=== PATIENT | male | born 1935 | race Caucasian/White ===

== ENCOUNTER 2016-09-02 00:13 | Observation (INO) | payer OTHER ==
[~2016-09-02] VITALS: Ht 182.9 cm; Wt 79.4 kg
--- NOTE | 2016-09-02 00:27 | NUR ---
PT BIBA FROM HOME C/O 01/05 SUBSTERNAL NONRADIATING CHEST PAIN THAT WOKE HIM FROM HIS SLEEP. EMS ADMINISTERED 1NITRO SPRAY AND PUT HIM ON 2L OF O2 NC AND PT REPORTS PAIN NOW A 11/05. PT ARRIVES NOT SOB, DENIES PAIN ANYWHERE ELSE. PMHX:MULTIPLE STENTS AND AN [place]. PT STATES "THIS FEELS DIFFERENT THOUGH"
--- NOTE | 2016-09-02 00:38 | ED CARDIAC/CP/PALPITATIONS ---
History of Present Illness General Chief Complaint: Chest Pain Stated Complaint: CP Source: patient, family, old records, EMS Exam Limitations: no limitations Vital Signs & Intake/Output Vital Signs & Intake/Output Vital Signs Date Time Temp Pulse Resp B/P Pulse O2 O2 Flow FiO2 Ox Delivery Rate 09/02 0141 97.6 81 18 132/63 97 Nasal 2.0L Cannula 09/02 0036 Room Air 09/02 0024 97.8 83 18 140/63 96 Nasal 2.0L Cannula Allergies Coded Allergies: NO KNOWN ALLERGIES (02/01/11) Reconcile Medications Aspirin (Aspirin*) 81 MG TAB.CHEW 1 TAB PO DAILY HEART (Reported) Atorvastatin Calcium 40 MG TABLET 1 TAB PO DAILY CHOLESTEROL (Reported) Clopidogrel Bisulfate (Clopidogrel) 75 MG TABLET 1 TAB PO DAILY ANTIPLATELET (Reported) Ezetimibe (Zetia) 10 MG TABLET 1 TAB PO DAILY CHOLESTEROL (Reported) Fish Oil/Borage/Flax/Om3,6,9#1 ([place] 3-6-9 1,200 MG Softgel) 1,200 MG CAPSULE 1 CAP PO DAILY SUPPLEMENT (Reported) Folic Acid 1 MG TABLET 400 MCG PO BID SUPPLEMENT (Reported) Labetalol HCl 100 MG TABLET 1 TAB PO BID BLOOD PRESSURE (Reported) Pantoprazole Sodium 40 MG TABLET.DR 1 TAB PO DAILY PPI (Reported) Ramipril 10 MG CAPSULE 1 CAP PO DAILY [place] (Reported) Core Measure Meds Pre-Hospital aspirin Triage Note: PT BIBA FROM HOME C/O 01/05 SUBSTERNAL NONRADIATING CHEST PAIN THAT WOKE HIM FROM HIS SLEEP. EMS ADMINISTERED 1NITRO SPRAY AND PUT HIM ON 2L OF O2 NC AND PT REPORTS PAIN NOW A 11/05. PT ARRIVES NOT SOB, DENIES PAIN ANYWHERE ELSE. PMHX:MULTIPLE STENTS AND AN [place]. PT STATES "THIS FEELS DIFFERENT THOUGH" Triage Nurses Notes Reviewed? yes Onset: Just prior to arrival Duration: minute(s):, constant, gone now Timing: recent history Quality/Severity: moderate, pressure, tightness Location: substernal Radiation: neck Activities at Onset: sleep Prior Chest Pain/Card Workup: cardiac cath, echocardiography, heart attack, stress test Modifying Factors: Improves With: nitroglycerin. Nitro Today/Relief: 0.4 mg x 1, provided by EMS, complete relief Aspirin Today: 81 mg x 4, provided at home HPI: Prior to admission patient was awoken with substernal chest pain described as achy radiating to neck constant moderate to severe improved with sublingual nitroglycerin en route. He had taken 4 baby aspirin prior to their arrival. He denies fever chills nausea vomiting diarrhea abdominal pain shortness of breath headache dysuria rash bleeding. Past History Travel History Traveled to [place] past 21 day No Medical History Any Pertinent Medical History? see below for history Cardiovascular: myocardial infarction, MULTIPLE STENTS Cancer(s): PROSTATE CANCER Surgical History Surgical History: PTCA stenting Psychosocial History Who do you live with Family What is your primary language Pakistani Tobacco Use: Never used ETOH Use: denies use Family History Hx Contributory? Yes Review of Systems Review of Systems Constitutional: Reports: no symptoms. EENTM: Reports: no symptoms. Respiratory: Reports: no symptoms. Cardiovascular: Reports: see HPI, chest pain. GI: Reports: no symptoms. Genitourinary: Reports: no symptoms. Musculoskeletal: Reports: no symptoms. Skin: Reports: no symptoms. Neurological/Psychological: Reports: no symptoms. Hematologic/Endocrine: Reports: no symptoms. Immunologic/Allergic: Reports: no symptoms. All Other Systems: Reviewed and Negative Physical Exam Physical Exam General Appearance: well developed/nourished, alert, awake, comfortable Head: atraumatic, normal appearance Eyes: Bilateral: normal appearance, PERRL, EOMI. Ears, Nose, Throat: normal pharynx, normal ENT inspection Neck: normal inspection, supple, full range of motion, no midline tenderness Respiratory: normal breath sounds, chest non-tender, no respiratory distress, quiet respiration, lungs clear Cardiovascular: regular rate/rhythm, normal peripheral pulses, norml femoral pulses equa Peripheral Pulses: 4+ carotid (R), 4+ carotid (L) Gastrointestinal: normal bowel sounds, soft, non-tender, no organomegaly Back: normal inspection, normal range of motion Extremities: normal inspection, normal capillary refill, normal range of motion, no edema Neurologic/Psych: no motor/sensory deficits, awake, alert, oriented x 3, normal mood/affect, buckle gluer II-XII nml as tested Reflexes: 2+: bicep (R), bicep (L). Skin: intact, normal color, warm/dry Lymphatic: no anterior cervical neil Core Measures ACS in differential dx? Yes Severe Sepsis Present: No Septic Shock Present: No Progress Differential Diagnosis: AMI, hyperkalemia, hypovolemia, musculoskeletal pain, pneumonia Plan of Care: Orders Procedure Date/time Status Regular Diet 09/02 B Active Patient Data 09/02 146 Active OXYGEN SETUP (GEN) 09/02 135 Active Saline Lock 09/[address] in observation 09/02 135 Active Vital Signs 09/02 135 Active Activity/Ambulation 09/02 135 Active Code Status 09/02 135 Active TROPONIN LEVEL 09/02 35 Complete COMPREHENSIVE METABOLIC PANEL 09/02 35 Complete CBC WITHOUT DIFFERENTIAL 09/02 35 Complete EKG 09/02 14 Active Laboratory Tests 09/02/16 0046: Anion Gap 7, Estimated GFR 58 L, BUN/Creatinine Ratio 12.5, Glucose 128 H, Calcium 8.9, Total Bilirubin 1.0, AST 28, ALT 36, Alkaline Phosphatase 91, Troponin I 0.01, Total Protein 5.7 L, Albumin 3.3 L, Globulin 2.4, Albumin/ Globulin Ratio 1.4, CBC w Diff NO MAN DIFF REQ, RBC 4.38 L, MCV 87.3, MCH 29.2, RDW 14.9 H, MPV 7.8, Gran % 75.3 H, Lymphocytes % 9.7 L, Monocytes % 10.6 H, Eosinophils % 4.0, Basophils % 0.4, Absolute Granulocytes 6.2, Absolute Lymphocytes 0.8 L, Absolute Monocytes 0.9 H, Absolute Eosinophils 0.3, Absolute Basophils 0, PUBS MCHC 33.5 Diagnostic Imaging: Viewed by Me: Radiology Read. Discussed w/RAD: Radiology Read. CXR Impression: no acute abnormality Initial ED EKG: normal axis, normal intervals, normal p-waves, normal QRS complex, normal sinus rhythm, no ST T wave changes Prior EKG: unchanged Rhythm Strip: normal sinus rhythm Departure Departure Time of Disposition: 99 Disposition: STILL A PATIENT Condition: Stable Clinical Impression Primary Impression: Chest pain at rest Referrals: TONYA KENT,MONICA (PCP/Family) Departure Forms: Customer Survey General Discharge Information Observation Note Spoke With: NAT KENT,KATIE Physician Advisor Notified: RALPH KENT,DELTA [facility] Place Patient In: Non-ED OBS Care Area Rationale for Observation: My rational for observation is as follows serial lab exam serial EKG cardiology evaluation medication adjustment continuing care discharge planning.. Critical Care Note Critical Care Note Critical Care Time: non-applicable
--- NOTE | 2016-09-02 00:53 | NUR ---
0.5GM NITRO-BID PASTE, 1/2IN APPLIED TO L CHEST WALL. VSS. WILL CTM. LABS DRAWN AND SENT. (1SST, 1 LAV).
--- NOTE | 2016-09-02 00:54 | NUR ---
GRANDSON LEFT NUMBER TO CALL HE IS PT'S [facility] IF NEEDED CLAUDE MCCORMICK .
--- NOTE | 2016-09-02 01:05 | NUR ---
PORTABLE CXRAY BEING DONE AT BEDSIDE
[2016-09-02] MEDS ORDERED: ATORVASTATIN CA40 M1 PO (01:06)
[2016-09-02] MEDS ORDERED: LABETALOL HCL100 M1 PO (01:06)
[2016-09-02] MEDS ORDERED: CLOPIDOGREL75 M1 PO (01:07)
[2016-09-02] MEDS ORDERED: PANTOPRAZOLE SO40 M1 PO (01:07)
[2016-09-02] MEDS ORDERED: ZETIA10 M1 PO (01:08)
[2016-09-02] MEDS ORDERED: RAMIPRIL10 M1 PO (01:08)
[2016-09-02] MEDS ORDERED: ASPIRIN81 M4 PO (01:09)
[2016-09-02] MEDS ORDERED: OMEGA 3-6-9 11200 MG PO (01:10)
[2016-09-02] MEDS ORDERED: FOLIC ACID1 M1 PO (01:10)
[2016-09-02 01:14] LABS: ABSOLUTE BASOPHIL COUNT 0 /CUMM (0.0-0.2); ABSOLUTE EOSINOPHIL COUNT 0.3 /CUMM (0.0-0.7); ABSOLUTE GRANULOCYTE CT 6.2 /CUMM (1.4-6.5); ABSOLUTE LYMPH COUNT 0.8 /CUMM (1.2-3.4); ABSOLUTE MONOCYTE COUNT 0.9 /CUMM (0.10-0.60); BASOPHIL % 0.4 % (0.0-2.0); GRANULOCYTE % 75.3 % (42.2-75.2); HEMATOCRIT 38.2 % (42-52); MEAN CORPUSCULAR HGB 29.2 PG (27.0-31.0); MEAN CORPUSCULAR HGB CONC 33.5 G/DL (33.0-37.0); MEAN CORPUSCULAR VOLUME 87.3 FL (80.0-94.0); MEAN PLATELET VOLUME 7.8 FL (7.4-10.4); PLATELET COUNT 228 /CUMM (130-400); RBC DISTRIBUTION WIDTH 14.9 % (11.5-14.5); RED BLOOD CELL CT 4.38 /CUMM (4.70-6.10); WHITE BLOOD CELL COUNT 8.3 /CUMM (4.8-10.8)
--- NOTE | 2016-09-02 01:44 | RADIOLOGY REPORT ---
EXAMINATION: XR PORTABLE CHEST CLINICAL INFORMATION: Chest pain COMPARISON: Multiple priors, most recently CT from 08/18/2014. TECHNIQUE: Portable AP view of the chest was obtained. FINDINGS: Low lung volumes. Cardiac leads overlie the chest. Hazy basilar opacities are noted. No pleural effusion or pneumothorax. No edema. The multiple pulmonary nodules seen on the prior chest CT are not well-visualized. The cardiomediastinal silhouette is unchanged, with a calcified aorta. No acute osseous abnormality. IMPRESSION: Low lung volumes with hazy basilar opacities, favoring atelectasis. No dense consolidation.
--- NOTE | 2016-09-02 01:55 | History & Physical ---
JG KENT,[facility] 09/02/16 0155: General Information and HPI MD Statement: I have seen and personally examined DARNELL MEDINA and documented this H&P. The patient is a 81 year old M who presented with a patient stated chief complaint of Chest Pain. Source of Information: patient, family Exam Limitations: no limitations History of Present Illness: Mr Medina is a 81 year old gentleman with previous history of heart disease, previous angioplasty, dyslipidemia and hypertension who presented to the emergency department [facility] after experiencing chest pain. Chest pain was described as sharp. Rated at a 6 out of 10 in severity. Chest pain woke the patient from sleep. The patient states that pain radiated up to his neck. Patient did not take anything for the chest pain and subsequently called the ambulance who brought him to the emergency department. While in the emergency department the patient was given nitroglycerin and subsequently had relief from his pain. Patient denies any fever, chills, nausea , vomiting. Patient does state that this chest pain has been atypical compared to previous chest pain in the past. Patient's grandson Christiano and iron James was present in the room. Patient PCP is Monica Castaneda MD. Patient's scooping machine tender is Dr. Hong. He last saw Dr. Hong approximately 5 months ago. Allergies/Medications Allergies: Coded Allergies: NO KNOWN ALLERGIES (02/01/11) Home Med list Amlodipine Besylate 10 MG TABLET 1 HTAB PO DAILY HTN (Reported) Aspirin (Aspirin*) 81 MG TAB.CHEW 1 TAB PO DAILY HEART (Reported) Atorvastatin Calcium 40 MG TABLET 1 TAB PO DAILY CHOLESTEROL (Reported) Clopidogrel Bisulfate (Clopidogrel) 75 MG TABLET 1 TAB PO DAILY ANTIPLATELET (Reported) Ezetimibe (Zetia) 10 MG TABLET 1 TAB PO DAILY CHOLESTEROL (Reported) Fish Oil/Borage/Flax/Om3,6,9#1 ([place] 3-6-9 1,200 MG Softgel) 1,200 MG CAPSULE 1 CAP PO DAILY SUPPLEMENT (Reported) Folic Acid 1 MG TABLET 400 MCG PO BID SUPPLEMENT (Reported) Labetalol HCl 100 MG TABLET 1 TAB PO BID BLOOD PRESSURE (Reported) Lisinopril 20 MG TABLET 1 TAB PO DAILY blood pressure Pantoprazole Sodium 40 MG TABLET.DR 1 TAB PO DAILY PPI (Reported) Ramipril 10 MG CAPSULE 1 CAP PO DAILY MS (Reported) Compliance With Home Meds: GOOD Past History Travel History Traveled to [place] past 21 day No Medical History Cardiovascular: myocardial infarction, MULTIPLE STENTS Cancer(s): PROSTATE CANCER Surgical History Surgical History: PTCA stenting Past Family/Social History Psychosocial History Where do you live? Home Who Do You Live With? spouse ETOH Use: denies use Review of Systems Review of Systems Constitutional: Denies: chills, diaphoresis, fever, malaise. EENTM: Denies: blurred vision, double vision, visual changes, eye pain. Cardiovascular: Reports: chest pain. Denies: edema, orthopena, palpitations, peripheral edema. Respiratory: Denies: cough, hemoptysis, orthopnea, short of breath. GI: Denies: abdominal pain, bloating, constipation, diarrhea, distention. Genitourinary: Denies: dysuria, frequency, hematuria. Musculoskeletal: Denies: back pain, gout, joint pain. Skin: Denies: change in skin color, change in hair/nails, dryness. Exam & Diagnostic Data Last 24 Hrs of Vital Signs/I&O Vital Signs Date Time Temp Pulse Resp B/P Pulse O2 O2 Flow FiO2 Ox Delivery Rate 09/02 0333 98.0 83 18 130/58 95 Room Air 09/02 0141 97.6 81 18 132/63 97 Nasal 2.0L Cannula 09/02 0036 Room Air 09/02 0024 97.8 83 18 140/63 96 Nasal 2.0L Cannula Intake & Output 09/02 0800 02/05 0000 02/ 1600 Intake Total 100 Output Total Balance 100 Intake, IV 100 Patient 79.379 kg Weight Physical Exam General Appearance Alert, Oriented X3, Cooperative Lymphatic Cervical nl Cardiovascular Normal S1, Normal S2, No Murmurs Lungs Clear to Auscultation Abdomen Normal Bowel Sounds, Soft, No Tenderness Neurological Normal Speech, Strength at 5/5 X4 Ext Diagnostic Data EKG Results No Evidence of any ST Changes. NSR. CXR Results PATIENT: DARNELL MEDINA PRESENT AGE: 81 PATIENT ACCOUNT NO: [id number] : 34 LOCATION: [facility] ORDERING PHYSICIAN: ABELINO FLORES MD SERVICE DATE: 09/02/16 EXAM TYPE: RAD - XRY-PORTABLE CHEST XRAY EXAMINATION: XR PORTABLE CHEST CLINICAL INFORMATION: Chest pain COMPARISON: Multiple priors, most recently CT from 08/18/2014. TECHNIQUE: Portable AP view of the chest was obtained. FINDINGS: Low lung volumes. Cardiac leads overlie the chest. Hazy basilar opacities are noted. No pleural effusion or pneumothorax. No edema. The multiple pulmonary nodules seen on the prior chest CT are not well-visualized. The cardiomediastinal silhouette is unchanged, with a calcified aorta. No acute osseous abnormality. IMPRESSION: Low lung volumes with hazy basilar opacities, favoring atelectasis. No dense consolidation. DICTATED BY: EUGENE NUNEZ MD DATE/TIME DICTATED:09/02/16139 SENIOR MANUFACTURING TECHNICIAN:JOSE MIGUEL DATE/TIME TRANSCRIBED:09/02/16139 CONFIDENTIAL, DO NOT COPY WITHOUT APPROPRIATE AUTHORIZATION. <Electronically signed in Other Vendor System> SIGNED BY: EUGENE NUNEZ MD 09/02 Assessment/Plan Assessment: This is an 81-year-old gentleman was admitted for chest pain in the setting of negative troponins and no EKG changes. #Atypical chest pain. Admit to telemetry as an observation for monitoring of cardiac activity Continue atorvastatin 40 mg by mouth daily Continue labetalol 100 mg by mouth twice a day Continue aspirin 81 mg by mouth daily Clopidogrel- was held for tomorrow please discuss restarting this medication with scooping machine tender Nitrate tab 0.4 mg as needed for chest pain Trend troponin and EKG every 6 hours Continue omeprazole 20 mg by mouth daily #History of hypertension Continue amlodipine 5 mg by mouth daily. If need be can add additional hypotensive or go up to 10 mg of calcium channel teja. Shalom inhibitor. Code full code As Ranked By This Provider Problem List: 1. Chest pain at rest 2. Diaphoresis Core Measures/Miscellaneous Acute Coronary Syndrome ACS Diagnosis: No Cerebrovascular Accident CVA/TIA Diagnosis: No Congestive Heart Failure CHF Diagnosis: No Venous Thromboembolism VTE Risk Factors: Age > 40 VTE Prophylaxis Ordered Inpt: [facility] d/t: No contraindications No VTE Pharm Prophylaxis d/t: No contraindications VTE Diagnosis: No VTE Type: NONE VTE Confirmed by (Test): NONE Severe Sepsis Severe Sepsis Present: No Septic Shock Septic Shock Present: No Miscellaneous Documentation Attending Case Discussed With: KATIE JOHNS MD Primary Care Physician: MONICA CASTANEDA MD Patient sees these Specialists Dr Hong Level of Patient Care: Telemetry ISAIAS SKINNER 09/02/16 0156: Resident Review Statement Resident Statement: examined this patient, discussed with tech intern, agreed with tech intern, discussed with family, reviewed EMR data (avail), discussed with nursing , discussed with case mgmt, reviewed images, amended to note Other Findings: 81 years old-year-old lifetime nonsmoker, non-diabetic white man with known coronary artery disease 3 NSTEMI in 1996, 2002, and 2007 status post stent placements, hypertension, hyperlipidemia, presented at the emergency room complaining of chest pain. Patient visited Dr. Hong 5 months ago, according to patient everything was very well controlled. He has been at his normal state of health, up until elevated this morning, when he woke up due to severe, sharp/ crushing chest pain. According to patient pain is started with the severity of 7 out of 10, with radiation to his neck and left shoulder and back, pain is not pleuritic, is not positional, and is not reproducible. He denies any palpitation, nausea, vomiting, feeling clammy. Patient reports that this current episode is not similar to his previous MIs. Pain is not increased with physical activity, move, touch, inspiration, patient does not have any symptoms of acid reflux or GI problems, no history of recent travel or contact with a sick person, no fever no chills. Denies palpitation, lightheadedness, dizziness. In the ambulance nitrates sublingual was given at reduce his pain is 3 out of 10. Review of system: 3 out of 10 pain; physical exam: Alert and oriented 3 not in acute distress ,Head and neck: Within normal limits; cardiovascular: S1-S2 without murmur, no friction rub; lungs: Clear; abdomen soft nontender; extremities no edema no cyanosis. Assessment 81-year-old gentleman with significant cardiovascular risk profile was admitted for atypical chest pain with negative troponin and normal EKG. #1 atypical chest pain: Considering his significant cardiac history the most possible cause for his presentation is myocardial ischemia. List of differential diagnoses include pneumonia or pneumothorax (highly unlikely: Patient does not have symptoms of upper respiratory tract infection chest x-ray. Patient has a Hx of reflux that could contribute/ cause his chest pain. * Admit to telemetry as an observation for monitoring his heart activity * Continue atorvastatin 40 mg by mouth daily * Continue labetalol 100 mg by mouth twice a day * Continue aspirin 81 mg by mouth daily * Clopidogrel- was held for tomorrow please discuss restarting this medication with scooping machine tender * Nitrate tab 0.4 mg as needed for chest pain * Trend troponin and EKG every 6 hours * Continue omeprazole 20 mg by mouth daily History of hypertension * Continue amlodipine 5 mg by mouth daily NAT KENT, [facility] 09/02/16 0214: Attending MD Review Statement Attending Statement Attending MD Statement: examined this patient, discuss w/resident/PA/RENTAL CLERK [employer], agreed w/resident/PA/RENTAL CLERK [employer] Attending Assessment/Plan: 81 yo M with h/o HTN, DLD, CKD stage 3A, CAD s/p NSTEMI s/p angioplasty (1996 LCX, 2002 LAD, 2007 cath was done, results not known), presents with sudden onset substernal chest discomfort radiating to neck and both shoulders, that woke him up from his sleep. He took 4 baby aspirins, received nitro spray by EMS and nitro ointment with his CP now down to 2/10. Denies dyspnea, diaphoresis, nausea or palpitations. He states, this episode if different from his previous MS. He follows Dr. Hong, was last seen on an outpatient basis few months back. Stress test (October 2015): No perfusion abnormalities, but patient was unable to achieve an adequate HR response, hence significant myocardial ischemia during exercise could not be ruled out. EF normal. VSS. Exam unremarkable. Labs troponin neg. CXR: atelectasis. EKG: SR. 1. Chest pain, rule out ACS in this elderly patient with extensive cardiac history. Serial EKG and troponin, obtain echo, monitor for arrhythmias, Cardio consult in AM. Ct. Aspirin, plavix, labetalol, statin and nitro. Check lipid panel, TSH, free T4 and HbA1c. Continue PPI. 2.HTN. Ct. Ramipril and amlodipine. DVT ppx Hep SC. Full code.
--- NOTE | 2016-09-02 02:15 | NUR ---
HOUSE STAFF AT BEDSIDE FOR EVAL
--- NOTE | 2016-09-02 02:36 | NUR ---
AT BEDSIDE FOR EVAL. PT NSR ON MONITOR, DENIES SOB, DENIES PAIN AT THIS TIME.
--- NOTE | 2016-09-02 02:42 | NUR ---
[facility] ASSIGNMENT [id number]
[2016-09-02 03:33] VITALS: BP 130/58
[2016-09-02] MEDS ORDERED: AMLODIPINE BESY10 M1 PO (04:42)
[2016-09-02 08:17] VITALS: BP 122/60
--- NOTE | 2016-09-02 10:36 | Cons- Cardiology ---
General Information and HPI Consulting Request Date of Consult: 09/02/16 Requested By: NAT KENT,KATIE History of Present Illness: Chirag is an 81 year old male with history of hypertension and coronary artery disease s/p AZ with multiple stents. He was doing well until last night when he was awakened from sleep by a moderate to severe precordial chest tightness that radiated to his neck and shoulders bilaterally. This discomfort was not associated with nausea, vomiting or diaphoresis. It resolved after receiving NTG in the ER and the entire episode lasted about 20 minutes. He now feels well. At baseline this patient can walk briskly for about 10 minutes before becoming short of breath. He has rare lightheadedness and denies palpitations. His last stress test was in 2015 and was negative for ischemia although the test was non- diagnostic due to an inability to achieve and adequate heart rate. His EF was normal at that time. To review this patient's prior history, he had a NSTEMI in 1996 with percutaneous intervention on the LCX at that time. In 2002, in response to a stress test showing an injury current, the patient underwent stenting of a 99% LAD lesion. In 2010, the patient noted exertional shoulder pain with shortness of breath. His troponin was again elevated consistent with a NSTEMI. A cardiac catheterization at that time showed a 70% proximal LAD, 95% LCX and 90% ostial diagonal branch. The RCA was dominant and diffusely diseased and it supplied collaterals to the LCX. The left main harbored a 30% proximal and distal stenosis. In consideration of the above this patient received a 3.5 x 16mm ION stent to the LCX, a 4.0 x 8mm ION stent to the proximal LAD and the ostial diagonal underwent POBA. Allergies/Medications Allergies: Coded Allergies: NO KNOWN ALLERGIES (02/01/11) Home Med List: Amlodipine Besylate 10 MG TABLET 1 HTAB PO DAILY HTN (Reported) Aspirin (Aspirin*) 81 MG TAB.CHEW 1 TAB PO DAILY HEART (Reported) Atorvastatin Calcium 40 MG TABLET 1 TAB PO DAILY CHOLESTEROL (Reported) Clopidogrel Bisulfate (Clopidogrel) 75 MG TABLET 1 TAB PO DAILY ANTIPLATELET (Reported) Ezetimibe (Zetia) 10 MG TABLET 1 TAB PO DAILY CHOLESTEROL (Reported) Fish Oil/Borage/Flax/Om3,6,9#1 ([place] 3-6-9 1,200 MG Softgel) 1,200 MG CAPSULE 1 CAP PO DAILY SUPPLEMENT (Reported) Folic Acid 1 MG TABLET 400 MCG PO BID SUPPLEMENT (Reported) Labetalol HCl 100 MG TABLET 1 TAB PO BID BLOOD PRESSURE (Reported) Pantoprazole Sodium 40 MG TABLET.DR 1 TAB PO DAILY PPI (Reported) Ramipril 10 MG CAPSULE 1 CAP PO DAILY [place] (Reported) Review of Systems Review of Systems: A twelve point review of systems is unremarkable other than the above. Past History Travel History Traveled to [place] past 21 day No Medical History Blood Transfusion Hx: Yes Cardiovascular: hypertension, hyperlipidemia, myocardial infarction, NSTEMI, MULTIPLE STENTS Cancer(s): PROSTATE CANCER s/p prostatectomy Surgical History Surgical History: PTCA stenting Psychosocial History Smoking Status: Never Smoked ETOH Use: denies use Exam & Diagnostic Data Vital Signs and I&O Vital Signs Date Time Temp Pulse Resp B/P Pulse O2 O2 Flow FiO2 Ox Delivery Rate 09/02 0817 98.1 78 18 122/60 94 Room Air 09/02 0333 98.0 83 18 130/58 95 Room Air 09/02 0141 97.6 81 18 132/63 97 Nasal 2.0L Cannula 09/02 0036 Room Air 09/02 0024 97.8 83 18 140/63 96 Nasal 2.0L Cannula Intake & Output 09/02 1600 09/02 0800 / 0000 / 1600 09/01 0800 02/ 0000 Intake Total 340 Output Total Balance 340 Intake, IV 100 Intake, Oral 240 Patient 175 lb Weight Physical Exam: General: WD/ WN male in NAD; alert and oriented x 3 HEENT: NC/AT, PERRL, EOMI, clear oropharynx Neck: no JVD, no carotid bruit Heart: RRR without murmur Lungs: clear bilaterally Abdomen: soft, NT, +ve bowel sounds Extremities: no edema Diagnostic Data EKG Results sinus rhythm Assessment/Plan Assessment/Plan * This patient had a transient episode of chest discomfort that was relieved by NTG. In consideration of his prior history I do have some suspicion that it may be related to myocardial ischemia despite the absence of ischemic ECG changes. A rise in troponin would not be expected in the setting of this short episode of discomfort. I would recommend risk stratification with a persantine stress test in the morning. * Increase aspirin to 162mg daily and continue Plavix. Continue his fish oil and Zetia. Unfortunately this patient has been in tolerant of statins. * Increase the patient's Lisinopril to 20mg daily and stop Norvasc. Continue Labetolol at 100mg BID. We will consider adding NTG if there is recurrent chest discomfort. Continue his PPI. * Obtain an echocardiogram Consult Acknowledgment - Thank you for your consult request.
--- NOTE | 2016-09-02 13:18 | PN- Att Addend ---
Attending Addendum Attending Brief Note Patient seen and examined, and currently denies any chest pain. Patient was made tele Obs early this am. Vital Signs Date Time Temp Pulse Resp B/P Pulse O2 O2 Flow FiO2 Ox Delivery Rate 09/02 1102 92 138/60 09/02 0817 98.1 78 18 122/60 94 Room Air 09/02 0333 98.0 83 18 130/58 95 Room Air 09/02 0141 97.6 81 18 132/63 97 Nasal 2.0L Cannula 09/02 0036 Room Air 09/02 0024 97.8 83 18 140/63 96 Nasal 2.0L Cannula on exam; aox3, nad. cv; s1,s2, rrr resp; clear abd; soft, nt, bs+ ext; no edema. Laboratory Tests 09/02 09/02 09/02 0700 0700 0700 Chemistry Hemoglobin A1c Pending Troponin I (<0.11 ng/ml) Cancelled < 0.01 Triglycerides (<150 mg/dL) 85 Cholesterol (< 200 MG/DL) 142 LDL Cholesterol, Calc (65 - 129 mg/dL) 86 HDL Cholesterol (40 - 60 mg/dL) 39 L Cholesterol/HDL Ratio (0.00 - 4.88 %) 4 TSH (0.270 - 4.200 uIU/mL) 1.440 Free T4 (0.85 - 1.93 ng/dL) 1.20 09/02 0046 Chemistry Sodium (137 - 145 mmol/L) 138 Potassium (3.5 - 5.1 mmol/L) 3.9 Chloride (98 - 107 mmol/L) 105 Carbon Dioxide (22 - 30 mmol/L) 26 Anion Gap (5 - 16) 7 BUN (9 - 20 mg/dL) 15 Creatinine (0.7 - 1.2 mg/dL) 1.2 Estimated GFR (>60 ml/min) 58 L BUN/Creatinine Ratio (7 - 25 %) 12.5 Glucose (65 - 99 mg/dL) 128 H Calcium (8.4 - 10.2 mg/dL) 8.9 Total Bilirubin (0.2 - 1.3 mg/dL) 1.0 AST (17 - 59 U/L) 28 ALT (21 - 72 U/L) 36 Alkaline Phosphatase (< 127 U/L) 91 Troponin I (<0.11 ng/ml) 0.01 Total Protein (6.3 - 8.2 g/dL) 5.7 L Albumin (3.5 - 5.0 g/dL) 3.3 L Globulin (1.9 - 4.2 gm/dL) 2.4 Albumin/Globulin Ratio (1.1 - 2.2 %) 1.4 Hematology CBC w Diff NO MAN DIFF REQ WBC (4.8 - 10.8 /CUMM) 8.3 RBC (4.70 - 6.10 /CUMM) 4.38 L Hgb (14.0 - 18.0 G/DL) 12.8 L Hct (42 - 52 %) 38.2 L MCV (80.0 - 94.0 FL) 87.3 MCH (27.0 - 31.0 PG) 29.2 RDW (11.5 - 14.5 %) 14.9 H Plt Count (130 - 400 /CUMM) 228 MPV (7.4 - 10.4 FL) 7.8 Gran % (42.2 - 75.2 %) 75.3 H Lymphocytes % (20.5 - 51.1 %) 9.7 L Monocytes % (1.7 - 9.3 %) 10.6 H Eosinophils % (0 - 5 %) 4.0 Basophils % (0.0 - 2.0 %) 0.4 Absolute Granulocytes (1.4 - 6.5 /CUMM) 6.2 Absolute Lymphocytes (1.2 - 3.4 /CUMM) 0.8 L Absolute Monocytes (0.10 - 0.60 /CUMM) 0.9 H Absolute Eosinophils (0.0 - 0.7 /CUMM) 0.3 Absolute Basophils (0.0 - 0.2 /CUMM) 0 PUBS MCHC (33.0 - 37.0 G/DL) 33.5 A/P; 81-year-old male with past medical history significant for coronary disease , hypertension, hyperlipidemia who presented with chest pain and he is on telemetry observation for chest pain. 2 sets of troponins have been negative. No overnight events. Please check echocardiogram. Continue current cardiac medications. DVT prophylaxis: Please add heparin subcutaneous.
[2016-09-02 15:31] VITALS: BP 120/58
[2016-09-02 22:00] VITALS: BP 140/68
--- NOTE | 2016-09-03 07:29 | PN- Housestaff ---
TED KENT,[facility] 09/03/16 0729: Subjective Follow-up For: Chest pain Subjective: Patient seen and examined this morning. He was lying comfortably in bed in no acute distress. No acute overnight events. He is scheduled for a stress test today, denies any symptoms of shortness of breath, dizziness, palpitation, chest pain, remains afebrile, the vitals within normal limits. Review of Systems Constitutional: Denies: chills, fever. Cardiovascular: Denies: chest pain, palpitations. Respiratory: Denies: cough, short of breath, sputum production. Gastrointestinal: Denies: abdominal pain, constipation, diarrhea, nausea, vomiting. Genitourinary: Denies: dysuria, frequency. Objective Last 24 Hrs of Vital Signs/I&O Vital Signs Date Time Temp Pulse Resp B/P Pulse O2 O2 Flow FiO2 Ox Delivery Rate 09/03 1351 142/80 09/03 0834 97.9 85 18 130/62 93 Room Air 09/02 2204 97 140/68 02 2200 98.7 96 20 140/68 94 Room Air 09/02 1531 97.9 81 20 120/58 95 Room Air Intake & Output 09/03 1600 09/03 0800 09/03 0000 Intake Total 100 Output Total Balance 100 Intake, Oral 100 Physical Exam General Appearance: Alert, Oriented X3, Cooperative Cardiovascular: Regular Rate, Normal S1, Normal S2, No Murmurs Lungs: Clear to Auscultation, Normal Air Movement Abdomen: Normal Bowel Sounds, Soft, No Tenderness Extremities: No Clubbing, No Cyanosis, No Edema Current Medications: Current Medications Sig/Sadia Start time Last Medication Dose Route Stop Time Status Admin Acetaminophen 325 MG Q6P PRN 09/02 0315 AC PO Amlodipine Besylate 5 MG DAILY 09/02 999 DC 09/02 PO 1102 Aspirin 162 MG DAILY 09/03 1000 AC 09/03 PO 1351 Aspirin 81 MG DAILY 09/02 1000 DC 09/02 PO 1102 Atorvastatin Calcium 40 MG 0 09/02 2199 AC 09/02 PO 2204 Clopidogrel Bisulfate 75 MG DAILY 09/02 1000 AC 09/03 PO 1351 Dipyridamole 45 MG 1200 09/03 1200 AC 09/03 Dextrose/Water 31 ML IV 09/13 1203 1353 Ezetimibe 10 MG DAILY 09/02 1000 AC 09/03 PO 1351 Fish Oil 1,050 MG DAILY 09/02 1000 AC 09/03 PO 1351 Folic Acid 0.5 MG BID 09/02 1059 AC 09/03 PO 1351 Heparin Sodium 5,000 UNIT Q8 09/02 1520 AC 09/03 (Porcine) SC 1354 Labetalol HCl 100 MG BID 09/02 1000 AC 09/03 PO 1351 Lisinopril 20 MG DAILY 09/03 1000 AC 09/03 PO 1351 Lisinopril 10 MG DAILY 09/02 1000 DC 09/02 PO 1103 Morphine Sulfate 2 MG Q6P PRN 09/02 0315 AC IV 09/04 0600 Nitroglycerin 0.4 MG ONCE PRN 09/02 0415 AC SL Omeprazole 20 MG DAILY AC 09/02 1000 AC 09/03 PO 0700 Patient Medication 1 UNIT ONE NR 09/02 1545 CO Teaching ED 09/02 1600 Patient Medication 1 UNIT ONE NR 09/02 1545 CO Teaching ED 09/02 1600 Last 24 Hrs of Lab/Ian Results Last 24 Hrs of Labs/Mics: Laboratory Tests 09/03/16 0610: Anion Gap 7, Estimated GFR 53 L, BUN/Creatinine Ratio 10.8, Glucose 103 H, Calcium 8.7, Total Bilirubin 0.9, AST 25, ALT 35, Alkaline Phosphatase 86, Total Protein 5.4 L, Albumin 2.9 L, Globulin 2.5, Albumin/Globulin Ratio 1.2, CBC w Diff NO MAN DIFF REQ, RBC 4.22 L, MCV 87.7, MCH 29.5, RDW 14.8 H, MPV 8.0, Gran % 66.1, Lymphocytes % 16.2 L, Monocytes % 11.7 H, Eosinophils % 5.3 H, Basophils % 0.7, Absolute Granulocytes 4.2, Absolute Lymphocytes 1.0 L, Absolute Monocytes 0.7 H, Absolute Eosinophils 0.3, Absolute Basophils 0, PUBS MCHC 33.7 Assessment/Plan Assessment: This is an 81-year-old gentleman was admitted for chest pain yesterday. Patient currently being monitored on telemetry floor for atypical chest pain. EKG and troponin have been negative, he is to go for Persantine nuclear stress test today, continued on atorvastatin 40, labetalol 100 mg and aspirin 162 mg Plavix, fish oil and Zetia, lisinopril increased to 20 mg daily, Norvasc has been discontinued Cardiology on board, Patient to go for stress test today, further plan as per stress tests results today. Echo pending Heart healthy diet DVT prophylaxis Patient is full code Problem List: 1. Chest pain Pain Ratin Pain Location: None Pain Goal: Remain pain free Pain Plan: Mild pain pathway Tomorrow's Labs & Rationales: None patient to be discharged HEATHER LEIVA MD 09/03/16 1337: Attending MD Review Statement Attending Statement Attending MD Statement: examined this patient, discuss w/resident/PA/HIGH PRESSURE KETTLE OPERATOR, agreed w/resident/PA/HIGH PRESSURE KETTLE OPERATOR, reviewed EMR data (avail), discussed with nursing, discussed with case mgmt, amended to note Attending Assessment/Plan: Seen and examined. Resting comfortably not in acute distress. Denies chest pain or shortness of breath. Denies palpitations. Reported mild nausea just prior to the stress test but this has since resolved. Denies any abdominal pain. Reports normal bowel habitus. He is remained hemodynamically stable overnight. No changes noted on telemetry. On examination he is resting comfortably and not in any distress. Lungs are clear bilaterally. Heart sounds are regular with no audible murmur. Abdomen is soft and nontender. He has no peripheral edema. Preliminary stress test results are negative. We'll confirm with her primer boxer. No further interventions recommended patient will be discharged home today. We'll continue his cardiac regimen. LILIA MACDONALD MD 09/03/16 8910: Attending Review Statement Attending Statement Attending Assessment/Plan: Seen by Dr. Heard
[2016-09-03 08:10] LABS: ABSOLUTE BASOPHIL COUNT 0 /CUMM (0.0-0.2); ABSOLUTE EOSINOPHIL COUNT 0.3 /CUMM (0.0-0.7); ABSOLUTE GRANULOCYTE CT 4.2 /CUMM (1.4-6.5); ABSOLUTE MONOCYTE COUNT 0.7 /CUMM (0.10-0.60); BASOPHIL % 0.7 % (0.0-2.0); EOSINOPHIL % 5.3 % (0-5); GRANULOCYTE % 66.1 % (42.2-75.2); MEAN CORPUSCULAR HGB 29.5 PG (27.0-31.0); MEAN CORPUSCULAR HGB CONC 33.7 G/DL (33.0-37.0); MEAN CORPUSCULAR VOLUME 87.7 FL (80.0-94.0); PLATELET COUNT 230 /CUMM (130-400); RBC DISTRIBUTION WIDTH 14.8 % (11.5-14.5); RED BLOOD CELL CT 4.22 /CUMM (4.70-6.10); WHITE BLOOD CELL COUNT 6.4 /CUMM (4.8-10.8)
[2016-09-03 08:34] VITALS: BP 130/62
--- NOTE | 2016-09-03 12:59 | PN- Cardiology ---
Subjective Subjective: Albert Medina is an 80-year-old male who I have been following for many years for dyslipidemia. He has also had 2 myocardial infarctions; the first one in 1996, an episode of acute coronary syndrome in 2002, and then a non ST-elevation myocardial infarction in 01/2011. He has had 3 angioplasties and stents; the first in 1996 to the circumflex, the next in 2002 to the LAD, and again in 2010 to the circumflex and LAD. Since that time, he has actually been doing well from a cardiac standpoint. He has had no further episodes of chest pain or ischemia. 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 Maki. He also has cough associated with this. He has had no other cardiac symptoms including palpitations, orthopnea, PND, ankle edema, dizziness or syncope. His other problems include mild chronic renal insufficiency, which actually improved after taking him off his diuretic, diabetes, hypertension, and dyslipidemia. He also had a total prostatectomy in 2000. His current cardiac regimen includes aspirin 81 mg daily, atorvastatin 40 mg daily, fish oil, folic acid, metoprolol 200 mg daily, ramipril 10 mg daily, and Zetia 10 mg daily. He did have a stress test done in October 2015. He did 6 minutes of exercise. His heart rate only got up to 95, possibly because he is on high dose of beta teja, although that was held. There was no ischemia by EKG on nuclear imaging although the test was limited by the low attained heart rate. He did have his lab work done in December with normal chemistries, except for a creatinine of 1.3, a cholesterol of 165 and LDL of 101. Everything else was normal. There has been no change in his medications. Albert was admitted yesterday with chest discomfort which lasted about 20 minutes and was precordial in nature. So far his evaluation has been negative with negative enzymes and normal EKGs. He is undergoing a Persantine stress test at this time. Objective Vital Signs and I&Os Vital Signs Date Time Temp Pulse Resp B/P Pulse O2 O2 Flow FiO2 Ox Delivery Rate 09/03 0834 97.9 85 18 130/62 93 Room Air 09/02 2204 97 140/68 02 2200 98.7 96 20 140/68 94 Room Air 09/02 1531 97.9 81 20 120/58 95 Room Air Intake & Output 09/03 0800 / 0000 09/02 1600 09/02 0800 09/02 0000 Intake Total 100 340 Output Total Balance 100 340 Intake, IV 100 Intake, Oral 100 240 Patient 175 lb Weight Physical Exam: On physical heis in no distress HEENT exam is normal Chest is clear Heart reveals regular rhythm and no murmurs Abdomen is benign Extremities reveal good pulses and no edema Current Medications: Current Medications Sig/Sadia Start time Last Medication Dose Route Stop Time Status Admin Acetaminophen 325 MG Q6P PRN 09/02 0315 AC PO Amlodipine Besylate 5 MG DAILY 09/02 1000 DC 09/02 PO 1102 Aspirin 162 MG DAILY 09/03 1000 AC PO Aspirin 81 MG DAILY 09/02 1000 DC 09/02 PO 1102 Atorvastatin Calcium 40 MG 2200 09/02 2200 AC 09/02 PO 2204 Clopidogrel Bisulfate 75 MG DAILY 09/02 1000 AC 09/02 PO 1102 Dipyridamole 45 MG 1200 09/03 1200 AC Dextrose/Water 31 ML IV 09/13 1203 Ezetimibe 10 MG DAILY 09/02 1000 AC 09/02 PO 1102 Fish Oil 1,050 MG DAILY 09/02 1000 AC 09/02 PO 1102 Folic Acid 0.5 MG BID 09/02 1059 AC 09/02 PO 2204 Heparin Sodium 5,000 UNIT Q8 09/02 1520 AC 09/02 (Porcine) SC 2205 Labetalol HCl 100 MG BID 09/02 1000 AC 09/02 PO 2204 Lisinopril 20 MG DAILY 09/03 1000 AC PO Lisinopril 10 MG DAILY 09/02 1000 DC 09/02 PO 1103 Morphine Sulfate 2 MG Q6P PRN 09/02 0315 AC IV 09/04 0600 Nitroglycerin 0.4 MG ONCE PRN 09/02 0415 AC SL Omeprazole 20 MG DAILY AC 09/02 1000 AC 09/03 PO 0700 Patient Medication 1 UNIT ONE NR 09/02 1545 [place] Teaching ED 09/02 1600 Patient Medication 1 UNIT ONE NR 09/02 1545 [facility] 09[facility]02 1600 Results Last 48 Hrs of Labs/Mics: Laboratory Tests 09/03/16 0610: Anion Gap 7, Estimated GFR 53 L, BUN/Creatinine Ratio 10.8, Glucose 103 H, Calcium 8.7, Total Bilirubin 0.9, AST 25, ALT 35, Alkaline Phosphatase 86, Total Protein 5.4 L, Albumin 2.9 L, Globulin 2.5, Albumin/Globulin Ratio 1.2, CBC w Diff NO MAN DIFF REQ, RBC 4.22 L, MCV 87.7, MCH 29.5, RDW 14.8 H, MPV 8.0, Gran % 66.1, Lymphocytes % 16.2 L, Monocytes % 11.7 H, Eosinophils % 5.3 H, Basophils % 0.7, Absolute Granulocytes 4.2, Absolute Lymphocytes 1.0 L, Absolute Monocytes 0.7 H, Absolute Eosinophils 0.3, Absolute Basophils 0, PUBS MCHC 33.7 09/02/16 1415: Troponin I < 0.01 09/02/16 0700: Troponin I Cancelled 09/02/16 0700: Hemoglobin A1c Pending 09/02/16 0700: Troponin I < 0.01, Triglycerides 85, Cholesterol 142, LDL Cholesterol, Calc 86, HDL Cholesterol 39 L, Cholesterol/HDL Ratio 4, TSH 1.440, Free T4 1.20 09/02/16 0046: Anion Gap 7, Estimated GFR 58 L, BUN/Creatinine Ratio 12.5, Glucose 128 H, Calcium 8.9, Total Bilirubin 1.0, AST 28, ALT 36, Alkaline Phosphatase 91, Troponin I 0.01, Total Protein 5.7 L, Albumin 3.3 L, Globulin 2.4, Albumin/ Globulin Ratio 1.4, CBC w Diff NO MAN DIFF REQ, RBC 4.38 L, MCV 87.3, MCH 29.2, RDW 14.9 H, MPV 7.8, Gran % 75.3 H, Lymphocytes % 9.7 L, Monocytes % 10.6 H, Eosinophils % 4.0, Basophils % 0.4, Absolute Granulocytes 6.2, Absolute Lymphocytes 0.8 L, Absolute Monocytes 0.9 H, Absolute Eosinophils 0.3, Absolute Basophils 0, PUBS MCHC 33.5 Assessment/Plan Assessment/Plan Albert is asymptomatic at this time. His troponins are all negative. As noted he is having a stress test today. If this is negative then he can be discharged later today. Continue telemetry? Yes
--- NOTE | 2016-09-03 13:42 | Patient Discharge Instructions ---
Discharge Instructions General Discharge Information You were seen/treated for: Chest pain Hypertension Special Instructions: Please schedule a follow-up appointment with your primary care physician and lease administration analyst to discuss results of stress test. Please watch out for any recurrent episodes of chest pain, dizziness, palpitation in case of emergency go to the nearest hospital. Diet Continue normal diet: Yes Recommended Diet: Heart Healthy Activity Activity Self Limited: Yes Acute Coronary Syndrome Inclusion Criteria At DC or during hospital stay patient has or had the following: ACS DIAGNOSIS No Discharge Core Measures Meds if any: Prescribed or Continued at Discharge Meds if any: NOT Prescribed or Continued at Discharge Congestive Heart Failure Inclusion Criteria At DC or during hospital stay patient has or had the following: CHF DIAGNOSIS No Discharge Core Measures Meds if any: Prescribed or Continued at Discharge Meds if any: NOT Prescribed or Continued at Discharge Cerebrovascular accident Inclusion Criteria At DC or during hospital stay patient has or had the following: CVA/TIA Diagnosis No Discharge Core Measures Meds if any: Prescribed or Continued at Discharge Meds if any: NOT Prescribed or Continued at Discharge Venous thromboembolism Inclusion Criteria VTE Diagnosis No VTE Type NONE VTE Confirmed by (Test) NONE Discharge Core Measures - Per Current guidelines, there needs to be overlap - treatment for the first 5 days of Warfarin therapy. - If discharged on Warfarin prior to 5 days of - overlap therapy, the patient will need to be - assessed for post discharge needs including - *Post discharge parental anticoagulation - *Warfarin and/or parental anticoagulation education - *Follow up date to check INR post discharge At least 5 days overlap therapy as Inpatient No Meds if any: Prescribed or Continued at Discharge Note: Overlap Therapy is Warfarin and Anticoagulant Meds if any: NOT Prescribed or Continued at Discharge
[2016-09-03] MEDS ORDERED: LISINOPRIL20 M1 PO (14:38)
--- NOTE | 2016-09-03 14:51 | Discharge Summary ---
Visit Information Visit Dates Admission Date: 09/02/16 Discharge Date: 09/03/16 Hospital Course Course Attending Physician: HEATHER LEIVA M.D Primary Care Physician: TONYA KENT,[facility] Course: Mr Medina is a 81 year old gentleman with previous history of heart disease, previous angioplasty, dyslipidemia and hypertension who presented to the emergency department [facility] after experiencing atypical chest pain with negative troponin and normal EKG upon presentation. Considering his significant cardiac history the most possible cause for his presentation was thought to be secondary to myocardial ischemia. Patient was admitted to telemetry floor as an observation for continuous cardiac monitoring, serial troponins and EKG were negative for any acute findings. He denied any repeat episodes of chest pain, dizziness, palpitation. He was continued on home doses of aspirin, clopidogrel, nitrate as needed for chest pain, atorvastatin, Lipitor , and amlodipine for hypertension. A Persantine stress test was done the following day which was negative. He was advised to follow-up with Dr. Hong upon discharge. Allergies: Coded Allergies: NO KNOWN ALLERGIES (02/01/11) Significant Procedures: DIPYRIDAMOLE STRESS W/NUC IMAG INTERPRETATION: The patient's baseline EKG was within normal limits and showed sinus rhythm at 86 BPM. Baseline B/P 132/74. The patient received 45 mg of dipyridamole infused intravenously over a 4 minute period. TC-99M or Myoview was injected after dipyridamole infusion. The patient tolerated the infusion well. There were no EKG changes seen following pharmacologic infusion. Arrhythmias: None IMPRESSION: The test was supervised by the interpreting Costume Seamstress, who was in attendance during the entire test. No EKG evidence of stress induced myocardial ischemia. See separately dictated Nuclear Report. Disposition Summary Disposition Principal Diagnosis: Chest pain Additional Diagnosis: Hypertension Discharge Disposition: home or self care Discharge Instructions General Discharge Information Code Status: Full Code Patient's Diet: Heart healthy Patient's Activity: As tolerated Follow-Up Instructions/Appts: Patient advised to follow-up with supervisor fur floor worker and PCP in one week. Medications at Discharge Discharge Medications: Stop taking the following medications: Ramipril (Ramipril) 10 MG CAPSULE ORAL DAILY Qty = 90 Amlodipine Besylate (Amlodipine Besylate) 10 MG TABLET ORAL DAILY Days = 90 Continue taking these medications: Atorvastatin Calcium (Atorvastatin Calcium) 40 MG TABLET 1 Tablet ORAL DAILY Qty = 90 Comments: Last Taken:09/02/16 Time:2200 Labetalol HCl (Labetalol HCl) 100 MG TABLET 1 Tablet ORAL TWICE DAILY Qty = 60 Comments: Last Taken:09/03/16 Time:1000 Clopidogrel Bisulfate (Clopidogrel) 75 MG TABLET 1 Tablet ORAL DAILY Qty = 90 Comments: Last Taken:09/03/16 Time:1000 Pantoprazole Sodium (Pantoprazole Sodium) 40 MG TABLET.DR 1 Tablet ORAL DAILY Qty = 90 Ezetimibe (Zetia) 10 MG TABLET 1 Tablet ORAL DAILY Qty = 30 Comments: Last Taken:09/03/16 Time:1000 Aspirin (Aspirin*) 81 MG TAB.CHEW 1 Tablet ORAL DAILY Comments: Last Taken:09/03/16 Time:1000 Folic Acid (Folic Acid) 1 MG TABLET 400 Microgram ORAL TWICE DAILY Comments: Last Taken:09/03/16 Time:1000 Fish Oil/Borage/Flax/Om3,6,9#1 (Crete 3-6-9 1,200 MG Softgel) 1,200 MG CAPSULE 1 Capsule ORAL DAILY Comments: Last Taken:09/03/16 Time:1000 Start taking the following new medications: Lisinopril (Lisinopril) 20 MG TABLET 1 Tablet ORAL DAILY Qty = 30 No Refills Comments: Last Taken:09/03/16 Time:1000 Copies To: HEATHER LEIVA M.D; TONYA KENT,[facility]; VERN KENT,SHAHBAZ Wood Attending MD Review Statement Documenting Attending: HEATHER LEIVA M.D Other Findings: I have reviewed the discharge summary
[2016-09-03 16:11] VITALS: BP 131/70
--- NOTE | 2016-09-03 17:04 | NUCLEAR MEDICINE REPORT ---
PERSANTINE STRESS AND RESTING SPECT MYOCARDIAL PERFUSION IMAGING STUDY WITH GATED SPECT IMAGES: CLINICAL INDICATION: Chest pain. PROCEDURE: Regional myocardial perfusion was assessed using a 1 day protocol. Stress images were obtained on 09/03/2016 following the intravenous administration of 17.3 mCi Tc 99m Myoview. Stress consisted of 45 mg Persantine given intravenously. Following the sestamibi injection no aminophylline was given intravenously. Rest images were obtained 09/03/2016 following the intravenous administration of 31.5 mCi Technetium 99m Myoview. Single photon emission tomographic (SPECT) images were obtained. SPECT images were acquired in a 64 x 64 matrix of 64 projections over 180 degrees. These were reconstructed into standard short axis, horizontal and vertical long axis cardiac projections. FINDINGS: The post stress images demonstrate the left ventricular chamber to be normal in size. There is homogeneous distribution of activity in the left ventricular myocardium with no regions of abnormally decreased activity noted. The resting images also demonstrate homogeneous distribution of activity in the left ventricular myocardium, and are not significantly changed from the post stress images. The images were obtained using a gated SPECT technique, which permits visualization of wall motion and calculation of the left ventricular ejection fraction. No left ventricular wall motion abnormalities are noted on either the stress or resting study. The calculated left ventricular ejection fraction is 70% on the stress study. Compared to the previous study dated 11/16/2015, there has not been a significant change in perfusion. The gated images from the previous study are not available for review and the wall motion cannot be compared. Ejection fraction is not significantly changed from the previous study when it was 67%. The previous study was performed with submaximal exercise stress. IMPRESSION: Normal Persantine stress and resting myocardial perfusion study with normal left ventricular wall motion and ejection fraction.
--- NOTE | 2016-09-05 08:28 | IV DIPYRIDAMOLE NUCLEAR STRESS ---
Clinical Diagnosis: Chest Pain Mine Car Dispatcher: Albaro Bowman IV DIPYRIDAMOLE INFUSED: 45 mg IV AMINOPHYLLINE INFUSED: 0 mg PATIENT WEIGHT: 175 lbs INTERPRETATION: The patient's baseline EKG was within normal limits and showed sinus rhythm at 86 BPM. Baseline B/P 132/74. The patient received 45 mg of dipyridamole infused intravenously over a 4 minute period. TC-99M or Myoview was injected after dipyridamole infusion. The patient tolerated the infusion well. There were no EKG changes seen following pharmacologic infusion. Arrhythmias: None IMPRESSION: The test was supervised by the interpreting Tobacco Packing Machine Operator, who was in attendance during the entire test. No EKG evidence of stress induced myocardial ischemia. See separately dictated Nuclear Report.
== END 2016-09-03 18:45 ==
LOC: ENRESERVDT → ENRESERVTM → ERH 00:13 → 1NO 01:36 → ERHI 01:36 → 1NO 03:22
PROVIDERS: Emergency Medicine; Student in an Organized Health Care Education/Training Program; ADMIT Student in an Organized Health Care Education/Training Program
DX: R07.9 Chest pain, unspecified (principal); E78.5 Hyperlipidemia, unspecified; I10 Essential (primary) hypertension; I25.2 Old myocardial infarction; E11.9 Type 2 diabetes mellitus without complications
CPT/HCPCS: 2000; 36415; 78452; 93005; 93010; 93016; 93017; 96372; A9502; G0378; J1245; J1644; J3490